=== PATIENT | female | born 1995 ===

== ENCOUNTER 2020-12-08 09:00 | Outpatient (CLI) | payer OTHER ==
--- NOTE | 2020-12-08 14:20 | XRAY Report ---
PROCEDURE: Wrist 3 View LT INDICATIONS: L WRIST PX TECHNIQUE: 3 views of the wrist were acquired. COMPARISON: 11/24/2020. FINDINGS: Bones: No fractures or dislocations. There is ulnar negative variance. No suspicious bony lesions. Soft tissues: No suspicious soft tissue calcifications. IMPRESSION: 1. No fracture or dislocation. Reviewed by: Damion Smith MD on 12/08/2020 2:19 PM PDT Approved by: Damion Smith MD on 12/08/2020 2:19 PM PDT Station ID: [id number]
== END 2020-12-08 23:59 | disposition home or self-care (01) ==
LOC: DI.N 09:00
PROVIDERS: ATTEND Orthopaedic Surgery
DX: M25.532 Pain in left wrist (principal)